=== PATIENT | female | born 1965 | race Caucasian/White ===

== ENCOUNTER 2020-07-06 09:39 | Emergency (ER) | payer SELFPAY ==
[~2020-07-06] VITALS: Ht 170.2 cm; Wt 54.0 kg
[2020-07-06 11:10] VITALS: BP 137/66
== END 2020-07-06 11:11 | disposition home or self-care (01) ==
LOC: ER 09:39
DX: F31.9 Bipolar disorder, unspecified (principal); Z98.890 Other specified postprocedural states; Z76.0 Encounter for issue of repeat prescription
CPT/HCPCS: 99281

== ENCOUNTER 2021-03-23 06:40 | Emergency (ER) | payer SELFPAY ==
[~2021-03-23] VITALS: Ht 170.2 cm; Wt 59.0 kg
[2021-03-23] MEDS ORDERED: LAMO200T50 MT (08:11)
[2021-03-23] MEDS ORDERED: BUSP15TA3 MT (08:11)
[2021-03-23 08:38] VITALS: BP 132/70
== END 2021-03-23 08:40 | disposition home or self-care (01) ==
LOC: ER 06:40
DX: F31.9 Bipolar disorder, unspecified (principal); Z76.0 Encounter for issue of repeat prescription
CPT/HCPCS: 99283

== ENCOUNTER 2021-07-03 19:03 | Emergency (ER) | payer SELFPAY ==
[~2021-07-03] VITALS: Ht 170.2 cm; Wt 58.0 kg
[~2021-07-03 19:03] MED LIST: BUSP15TA3 MT; LAMO200T50 MT
[2021-07-03 19:06] VITALS: BP 141/84
[2021-07-03] MEDS ORDERED: IBUPROFEN 600MG TABLET PO ONE (22:30)
[2021-07-03] MEDS ORDERED: IBUP-2029 MT (22:33)
[2021-07-03] MEDS ORDERED: LAMO200T9 MT (22:34)
== END 2021-07-03 23:28 | disposition home or self-care (01) ==
LOC: ER 19:03
DX: S90.31XA Contusion of right foot, initial encounter (principal); W22.03XA Walked into furniture, initial encounter; Y93.89 Activity, other specified; Y92.013 Bedroom of single-family (private) house as the place of occurrence of the external cause
CPT/HCPCS: 73630; 99283

== ENCOUNTER 2021-11-06 16:06 | Emergency (ER) | payer BC ==
[~2021-11-06] VITALS: Ht 170.2 cm; Wt 58.0 kg
[~2021-11-06 16:06] MED LIST changes: +IBUP-2029 MT; +LAMO200T9 MT
[2021-11-06] MEDS ORDERED: BUSP15TA3 MT (17:17)
[2021-11-06] MEDS ORDERED: LAMO200T50 MT (17:17)
[2021-11-06 18:24] VITALS: BP 124/65
== END 2021-11-06 18:28 | disposition home or self-care (01) ==
LOC: ER 16:06
DX: Z76.0 Encounter for issue of repeat prescription (principal); F31.9 Bipolar disorder, unspecified; Z98.890 Other specified postprocedural states; Z79.899 Other long term (current) drug therapy
CPT/HCPCS: 99281